=== PATIENT | female | born 1975 | race Two or more races ===

== ENCOUNTER 2021-11-22 09:14 | Emergency (ER) | payer OTHER ==
[~2021-11-22] VITALS: Ht 154.9 cm; Wt 49.9 kg
[2021-11-22] MEDS ORDERED: HYDROXYZINE HCL25 MG PO (12:33)
== END 2021-11-22 12:46 | disposition home or self-care (01) ==
LOC: ER 09:14
DX: R51.9 Headache, unspecified (principal); I10 Essential (primary) hypertension